=== PATIENT | male | born 1985 | race Caucasian/White ===

== ENCOUNTER 2017-03-01 22:31 | Emergency (ER) | payer SELFPAY ==
[~2017-03-01] VITALS: Ht 190.5 cm; Wt 72.7 kg
[2017-03-01 22:33] VITALS: BP 147/82; TEMP 97.8
[2017-03-01] MEDS ORDERED: PROZAC 10MG10 MG PO (22:36)
[2017-03-01] MEDS ORDERED: ZYPREXA 5MG5 MG PO (22:37)
[2017-03-02 00:07] VITALS: PULSE 70
== END 2017-03-02 00:09 | disposition home or self-care (01) ==
LOC: COL.ER 22:31
DX: S91.312A Laceration without foreign body, left foot, initial encounter (principal); W25.XXXA Contact with sharp glass, initial encounter

== ENCOUNTER 2017-04-24 02:22 | Emergency (ER) | payer SELFPAY ==
[~2017-04-24] VITALS: Ht 190.5 cm; Wt 68.2 kg
[~2017-04-24 02:22] MED LIST: PROZAC 10MG10 MG PO; ZYPREXA 5MG5 MG PO
[2017-04-24 02:25] VITALS: BP 130/82; TEMP 97.6
[2017-04-24] MEDS ORDERED: FLEXERIL 1010 MG/TAB PO (02:48)
[2017-04-24] MEDS ORDERED: NORCO 325 MG-51 TAB PO (02:55)
[2017-04-24 03:39] VITALS: PULSE 77
== END 2017-04-24 03:40 | disposition home or self-care (01) ==
LOC: COL.ER 02:22
DX: S05.01XA Injury of conjunctiva and corneal abrasion without foreign body, right eye, initial encounter (principal); F12.90 Cannabis use, unspecified, uncomplicated; F17.210 Nicotine dependence, cigarettes, uncomplicated; Z23 Encounter for immunization; W26.8XXA Contact with other sharp object(s), not elsewhere classified, initial encounter